=== PATIENT | female | born 1940 | race Caucasian/White ===

== ENCOUNTER 2023-05-19 13:56 | Emergency (ER) | payer OTHER ==
[~2023-05-19] VITALS: Ht 162.6 cm; Wt 115.7 kg
[2023-05-19 14:13] VITALS: BP_SYST 142; PULSE 79; RESP 16; TEMP 97.1; O2SAT 97
[2023-05-19] MEDS ORDERED: KETOROLAC TROMETHAMINE 30 MG VIAL IVP ONE (14:15)
[2023-05-19] MEDS ORDERED: NACL 0.9% 1,000 ML IV ONE ×2 (14:15→16:30)
[2023-05-19 15:04] LABS: BASOPHILS % (AUTO) 0.5 % (0.0-2.0); EOSINOPHILS # (AUTO) 0.1 K/uL (0.0-0.4); HEMOGLOBIN 11.6 g/dL (12.0-16.0); LYMPHOCYTES # (AUTO) 1.1 K/uL (1.0-5.5); LYMPHOCYTES % (AUTO) 17.2 % (20.5-51.5); MEAN CORPUSCULAR HEMOGLOBIN 30 pg (27-31); MEAN CORPUSCULAR HGB CONC 33 % (32-36); MEAN CORPUSCULAR VOLUME 89 fL (79.0-98.0); MONOCYTES # (AUTO) 0.4 K/uL (0.0-1.0); MONOCYTES % (AUTO) 6.3 % (1.7-9.3); NEUTROPHILS # (AUTO) 4.6 K/uL (1.8-7.7); PLATELET COUNT (AUTO) 193 K/uL (130-430); RED BLOOD CELL COUNT(AUTO) 3.94 MIL/uL (4.2-6.2); RED CELL DISTRIBUTION WIDTH 19.8 % (9.0-15.0); WHITE BLOOD COUNT (AUTO) 6.2 K/uL (4.8-10.8)
[2023-05-19 15:20] LABS: BILIRUBIN,URINE NEGATIVE (NEGATIVE); BLOOD, URINE 2+ (NEGATIVE); COLOR,URINE YELLOW (YELLOW); GLUCOSE,URINE NEGATIVE (NEGATIVE); KETONES,URINE NEGATIVE (NEGATIVE); LEUKOCYTE ESTERASE ,URINE 3+ (NEGATIVE); NITRITE, URINE NEGATIVE (NEGATIVE); PH,URINE 5.5 (5.0-8.0); PROTEIN URINE 1+ (NEGATIVE); UROBILINOGEN,URINE 0.2 (0.2-1.0)
[2023-05-19 15:21] LABS: CLARITY/URINE HAZY (CLEAR)
[2023-05-19 15:51] LABS: PROTHROMBIN TIME 10.5 SECS (9.5-12.5)
[2023-05-19] MEDS ORDERED: CYAN100010 PO (15:55)
[2023-05-19] MEDS ORDERED: ASCO500T20 PO (15:55)
[2023-05-19] MEDS ORDERED: NOR10 PO (15:55)
[2023-05-19] MEDS ORDERED: ASPI-1155 PO (15:55)
[2023-05-19] MEDS ORDERED: FERR-69 PO (15:55)
[2023-05-19] MEDS ORDERED: GLIP5TAB26 PO (15:55)
[2023-05-19] MEDS ORDERED: IRBE150T48 PO (15:55)
[2023-05-19] MEDS ORDERED: HYDR-4038 PO (15:55)
[2023-05-19] MEDS ORDERED: FAMO20TA8 PO (15:55)
[2023-05-19] MEDS ORDERED: INSU100V7 SUBCUT (15:55)
[2023-05-19] MEDS ORDERED: NEU300 PO (15:55)
[2023-05-19] MEDS ORDERED: LACT1CAP69 PO (16:03)
[2023-05-19] MEDS ORDERED: CYAN250010 PO (16:04)
[2023-05-19] MEDS ORDERED: MULT-1117 PO (16:04)
[2023-05-19] MEDS ORDERED: METH-799 PO (16:04)
[2023-05-19] MEDS ORDERED: HYDR-4272 PO (16:04)
[2023-05-19] MEDS ORDERED: ZINC220T4 PO (16:04)
[2023-05-19] MEDS ORDERED: ACET-2634 PO ×2 (16:04)
[2023-05-19] MEDS ORDERED: TRAZ150T77 PO (16:04)
[2023-05-19] MEDS ORDERED: SACC250C3 PO (16:04)
[2023-05-19 16:05] LABS: ALANINE AMINOTRANSFERASE 11 U/L (12-78); ALBUMIN 2.7 g/dL (3.4-4.8); ANION GAP 12 (5-15); ASPARTATE AMINOTRANSFERASE 10 U/L (10-37); CALCIUM 8.9 mg/dL (8.4-11.0); CREATININE 0.95 mg/dL (0.55-1.30); GLUCOSE 134 mg/dL (70-99); TOTAL BILIRUBIN 0.6 mg/dL (0.0-1.0); UREA NITROGEN, BLOOD 58 mg/dL (8-21)
[2023-05-19 16:09] LABS: CHLORIDE 120 mmol/L (98-107)
[2023-05-19] MEDS ORDERED: cefTRIAXone 2 GM VIAL ONE ×2 (16:25)
[2023-05-19] MEDS ORDERED: NACL 0.9% 1,000 ML IV SCH (16:45)
[2023-05-19 16:52] LABS: BACTERIA,URINE MODERATE /HPF (None Seen); WBC,URINE 50-80 /HPF (0-3)
[2023-05-19] MEDS ORDERED: INSULIN REGULAR, HUMAN 100 UNITS/ML, 3 ML VIAL (humuLIN R) SUBCUT PRN (17:00)
[2023-05-19 20:00] VITALS: BP_SYST 142; PULSE 65; RESP 14; TEMP 98.2; O2SAT 96
== END 2023-05-19 20:00 | disposition home or self-care (01) ==
LOC: SED 13:56 → UNDOADMIN 16:40 → STU 16:40 → SED 20:00
DX: L89.159 Pressure ulcer of sacral region, unspecified stage (principal); N39.0 Urinary tract infection, site not specified; E86.0 Dehydration; E11.9 Type 2 diabetes mellitus without complications; I10 Essential (primary) hypertension; K21.9 Gastro-esophageal reflux disease without esophagitis; Z88.2 Allergy status to sulfonamides; Z88.6 Allergy status to analgesic agent; Z79.4 Long term (current) use of insulin; Z79.899 Other long term (current) drug therapy
CPT/HCPCS: 99285; 96365; 71045; 96361; 96375; 80053; 81000; 83880; 83735; 85025; 85610; 85730; 87040; 87086; 84484; 36415; 93005; 83605; J0696; J1885; J7030